=== PATIENT | male | born 1955 | race Caucasian/White ===

== ENCOUNTER → 2022-05-08 | Outpatient (CLI) | payer MEDICARE, OTHER, SELFPAY ==
[2022-05-08 19:55] LABS: PSA,Total - Annual Screen 7.72 ng/mL (0.00-4.00)
== END | disposition home or self-care (01) ==
PROVIDERS: Visit Provider Urology
DX: Z12.5 Encounter for screening for malignant neoplasm of prostate (principal)
CPT/HCPCS: 36415; 84153; G0103

== ENCOUNTER → 2022-12-05 | Outpatient (CLI) | payer MEDICARE, OTHER, SELFPAY | END | disposition home or self-care (01) | LOC: LAB 14:03 | PROVIDERS: Referring Provider Urology; Visit Provider Urology | DX: C61 Malignant neoplasm of prostate (principal) | CPT/HCPCS: 36415; 84153 ==

== ENCOUNTER → 2023-06-08 | Outpatient (CLI) | payer MEDICARE, OTHER, SELFPAY ==
[2023-06-08 15:38] LABS: PSA,Total- Diagnostic 2.57 ng/mL (0.0-4.0)
== END | disposition home or self-care (01) ==
PROVIDERS: Referring Provider Nurse Practitioner; Visit Provider Nurse Practitioner
DX: C61 Malignant neoplasm of prostate (principal)
CPT/HCPCS: 36415; 84153